=== PATIENT | female | born 2005 | race Hispanic/Latino ===

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

== ENCOUNTER 2024-03-14 12:20 | Emergency (ER) | payer OTHER, SELFPAY ==
--- OUTSIDE RECORDS SUMMARY | 2024-03-14 12:23 | XMS REPORT | Continuity of Care Document ---
Author Name Unknown Address [address] [place] [address] [facility] Address [address] [place] [address] Care Team Providers Care Medical Clinic Manager Name Role Phone Unavailable Unavailable Unavailable Encounters Start Date/Time End Date/Time Encounter Type Admission Type Attending Clinicians Care Facility Care Department Encounter ID Source 2022-01-08 15:50:07 2022-01-08 15:50:[address] [facility] [id number] Results Test Description Test Time Test Comments Results Result Co mments Source SARS-CoV-2 (COVID-19), RT-PCR/[id number] 10:52:42* Test Item Value Reference Range Interpretation Comments SARS-CoV-2 INTERPRETATION (test code = 01383) POSITIVE SEE NOTE A SARS-CoV-2 R NA DETECTEDPositive results are indicative of the presence of SARS-CoV-2 RNA;clinical correlation with patient history and other diagnosticinformation is necessary to determine patient infection status.Positive results do not rule out bacterial infection or co-infectionwith other viruses. Positive and negative predictive values oftesting are highly dependent on prevalence. SOURCE (test code = 10555) NOT SPECIFIED Note: Methodolog y is Gamal Lilli Real-Time RT-PCR. The expected result or reference range is NEGATIVE (Not Detected). For more information regarding COVID-19 testing to include clinicalinformation, methodology detail, intended use, FDA authorization andrecommended fact sheets for patients or healthcare providers, see NewTest Announcement: SARS-CoV-2 (COVID-19) by NAAT at URL below (note,fact sheets are provided by method given in report:https://www.[employer].com/clinicians/client-c ommunications/ Alternatively, see downloadable PDF fact sheet at:https://www.[employer] m/LUALQ-10-TZ-PCR UNLESS OTHERWISE INDICATED, ALL TESTING PERFORMED [facility] [employer], [address]. [address] [place] [address] VESSEL SCRAPPER: ANANDA VERMA M.D. CLIA NUMBER [id number] [place]. [id number] CT/NG, NAAT, [id number] 18:29:58* Test Item Value Reference Range Interpretation Comme nts GONORRHEA, NAAT (test code = 24342) NEGATIVE NEGATIVE IMPORTANT NO STEFANY: SEE ANNOUNCEMENT AT https://www.[employer]/Jack heCobasUrineKit Note: Assay methodology is nucleic acid amplification by meat team lead mediated amplification (TMA) utilizing the Aptima Combo 2 Assay. CHLAMYDIA, NAAT (test code = 74126) NEGATIVE NEGATIVE IMPORTANT NO STEFANY: SEE ANNOUNCEMENT AT https://www.[employer]/Jack heCobasUrineKit Note: Assay methodology is nucleic acid amplification by meat team lead mediated amplification (TMA) utilizing the Aptima Combo 2 Assay. UNLESS OTHERWISE INDICATED, ALL TESTING PERFORMED [facility] [employer] [address] [place] [address] VESSEL SCRAPPER: ANANDA VERMA M.D. CLIA NUMBER [id number] [place]. [id number]
--- NOTE | 2024-03-14 13:02 | ER ---
Nurse's Notes [facility] Name: Olimpia Lynn Age: 18 yrs Sex: Female : 2005 Arrival Date: 03/14/2024 Time: 12:20 Bed IW7 Private MD: Diagnosis: Acute suppurative otitis media;Other otitis externa, left ear Presentation: 03/14 12:54 Chief complaint: Patient states: Left ear pain onset last night. Coronavirus screen: cm10 Client denies travel out of the [place] in the last 14 days. Ebola Screen: Patient denies travel to an Ebola-affected area in the 21 days before illness onset. Initial Sepsis Screen: Does the patient meet any 2 criteria? No. Patient's initial sepsis screen is negative. Does the patient have a suspected source of infection? No. Patient's initial sepsis screen is negative. Risk Assessment: Do you want to hurt yourself or someone else? Patient reports no desire to harm self or others. Onset of symptoms was March 13, 2024. 12:54 Method Of Arrival: Ambulatory cm10 12:54 Acuity: TALAT 4 cm10 Triage Assessment: 12:55 General: Appears in no apparent distress. comfortable, Behavior is calm, cooperative. cm10 Pain: Complains of pain in left ear Pain does not radiate. Pain currently is 7 out of 10 on a pain scale. Quality of pain is described as aching. EENT: Reports pain in left ear. Neuro: No deficits noted. Level of Consciousness is awake, alert, obeys commands, Oriented to person, place, time, situation, Appropriate for age. Respiratory: No deficits noted. Airway is patent Respiratory effort is even, unlabored, Respiratory pattern is regular, symmetrical. 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 - Infectious Disease History:: Denies. - Social history:: Smoking status: Reported history of juuling and/or vaping. Screenin:56 [facility] ED Fall Risk Assessment (Adult) History of falling in the last 3 months, cm10 including since admission No falls in past 3 months (0 pts) Confusion or Disorientation No (0 pts) Intoxicated or Sedated No (0 pts) Impaired Gait No (0 pts) Mobility Assist Device Used No (0 pt) Altered Elimination No (0 pt) Score/Fall Risk Level 0 - 2 = Low Risk Oriented to surroundings, Maintained a safe environment, Hourly rounding (assess needs \T\ fall precautionary measures) done. Abuse screen: Denies threats or abuse. Denies injuries from another. Nutritional screening: No deficits noted. Tuberculosis screening: No symptoms or risk factors identified. Assessment: 13:44 Reassessment: Patient appears in no apparent distress at this time. Patient and/or cm10 family updated on plan of care and expected duration. Pain level reassessed. Patient is alert, oriented x 3, equal unlabored respirations, skin warm/dry/pink. Vital Signs: 12:54 BP 129 / 78; Pulse 89; Resp 16; Temp 98.3(O); Pulse Ox 97% on R/A; Weight 113.4 kg; cm10 Height 5 ft. 8 in. ; Pain 7/10; 12:54 Body Mass Index 38.01 (113.40 kg, 172.72 cm) cm10 12:54 Pain Scale: Adult cm10 ED Course: 12:24 Patient arrived in ED. al6 12:24 Nhan Breaux MD is Attending Physician. ec2 12:55 Triage completed. cm10 12:56 Arm band placed on right wrist. Patient placed in waiting room. cm10 12:56 Patient has correct armband on for positive identification. Provided Education on: ER cm10 process and procedures.. Cardiac monitoring not applicable on this patient. 12:56 No provider procedures requiring assistance completed. Patient did not have IV access cm10 during this emergency room visit. Administered Medications: 13:43 Drug: Ketorolac IM 15 mg IM once Route: IM; Site: right vastus lateralis; cm10 13:45 Follow up: Response: Medication administered at discharge. cm10 Medication: 12:56 VIS not applicable for this client. cm10 Outcome: 13:01 Discharge ordered by . ec2 13:44 Discharged to home ambulatory, with family, cm10 13:44 Condition: good 13:44 Discharge instructions given to patient, Instructed on discharge instructions, follow up and referral plans. medication usage, Demonstrated understanding of instructions, follow-up care, medications, 13:44 Prescriptions given X 2, 13:45 Patient left the ED. cm10 Signatures: Lilliana Welch RN RN cm10 Nhan Breaux MD MD ec2 Radha Macdonald6
--- NOTE | 2024-03-14 13:02 | EDPHYS ---
Physician Documentation [facility] Name: Olimpia Lynn Age: 18 yrs Sex: Female : 2005 Arrival Date: 03/14/2024 Time: 12:20 Bed [id number] Private MD: ED Physician Nhan Breaux HPI: 03/14 13:14 This 18 yrs old Female presents to ER via Ambulatory with complaints of Ear ec2 Pain. 13:14 Patient arrives for a 1 day of left ear pain.. ec2 VP SITE: 13:01 LMP 02/18/2024, unknown cm10 Historical: - Allergies: 12:55 No Known Allergies; cm10 - Home Meds: 12:55 None [Active]; cm10 - PMHx: 12:55 None; cm10 - PSHx: 12:55 None; cm10 - Immunization history:: Adult Immunizations up to date. - Infectious Disease History:: Denies. - Social history:: Smoking status: Reported history of juuling and/or vaping. ROS: 13:14 Constitutional: as per hpi ec2 Exam: 13:14 Constitutional: GEN: NAD Head: atraumatic Eyes: EOMI Ears: External ears are normal., ec2 Left sinus externa CV: regular rate LUNGS: no respiratory distress ABD: non-distended SKIN: no evidence of rashes MSK: no evidence of trauma Vital Signs: 12:54 BP 129 / 78; Pulse 89; Resp 16; Temp 98.3(O); Pulse Ox 97% on R/A; Weight 113.4 kg; cm10 Height 5 ft. 8 in. ; Pain 7/10; 12:54 Body Mass Index 38.01 (113.40 kg, 172.72 cm) cm10 12:54 Pain Scale: Adult cm10 MDM: 12:58 Medical Screening Exam initiated ec2 13:14 Data reviewed: vital signs, nurses notes. ED course: Patient has a left otitis externa ec2 and will treat with antibiotics.. Administered Medications: 13:43 Drug: Ketorolac IM 15 mg IM once Route: IM; Site: right vastus lateralis; cm10 13:45 Follow up: Response: Medication administered at discharge. cm10 Disposition Summary: 03/14/24 13:01 Discharge Ordered Notes: Location: Home ec2 Condition: Stable ec2 Diagnosis - Acute suppurative otitis media ec2 - Other otitis externa, left ear ec2 Followup: ec2 - With: Private Physician - When: - Reason: Re-evaluation by your physician Discharge Instructions: - Discharge Summary Sheet ec2 - Otitis Externa, [id number] ec2 - Otitis Media, Adult, [id number] ec2 Forms: - Medication Reconciliation Form ec2 - Antibiotic Education ec2 - Prescription Opioid Use ec2 - Patient Portal Instructions ec2 - Leadership Thank You Letter ec2 Prescriptions: - ofloxacin 0.3 % Otic drops - instill 5 drop OTIC route every 12 hours for 7 days; 5 milliliter; Refills: 0, ec2 Product Selection Permitted - Augmentin 875-125 mg Oral Tablet - take 1 tablet ORAL route every 12 hours for 10 days; 20 tablet; Refills: 0, ec2 Product Selection Permitted Signatures: Lilliana Welch RN RN cm10 Nhan Breaux MD MD ec2
[2024-03-14] MEDS ORDERED: KETOROLAC 30 MG/ML INJ ONE (13:35)
[2024-03-14 13:50] VITALS: BP 129/78; TEMP 98.3; O2SAT 97
== END 2024-03-14 13:45 | disposition home or self-care (01) ==
LOC: ER 12:20
DX: H66.002 Acute suppurative otitis media without spontaneous rupture of ear drum, left ear (principal); H60.8X2 Other otitis externa, left ear